=== PATIENT | male | born 1955 | race Caucasian/White ===

== ENCOUNTER 2016-05-23 06:30 | Emergency (ER) | payer BC, OTHER ==
[2016-05-23] MEDS ORDERED: Ondansetron INJ* 2 MG/ML VIAL ONE (07:12)
[2016-05-23] MEDS ORDERED: Ondansetron INJ* 2 MG/ML VIAL IV ONE ×2 (07:15→07:22)
[2016-05-23] MEDS ORDERED: Ondansetron ODT TAB* 4 MG PO ONE ×2 (07:22→09:40)
[2016-05-23] MEDS: NS 0.9% 1000 ML* 3,000 ML IV ONE ×3 (07:38→09:10)
[2016-05-23 07:56] LABS: Hematocrit 48 % (42-52); Hemoglobin 16.1 g/dl (14.0-18.0); Mean Corpuscular HGB Conc 34 g/dl (31-36); Mean Corpuscular Hemoglobin 32 pg (27-31); Mean Corpuscular Volume 94 fL (80-94); Mean Platelet Volume 8 um3 (7.4-10.4); Red Blood Count 5.09 10^6/ul (4.0-5.4); Red Cell Distribution Width 14 % (10.5-15)
[2016-05-23 08:07] LABS: Albumin 4.9 g/dL (3.2-5.2); BUN/Creatinine Ratio 22.6 (8-20); C Reactive Protein 2.41 mg/L (< 5.00); Calcium 10.3 mg/dL (8.6-10.3); EGFR African American 70.1 (>60); EGFR Non-African American 54.5 (>60); Globulin 3.3 g/dL (2-4); Potassium 4.5 mmol/L (3.5-5.0); Total Bilirubin 0.9 mg/dL (0.2-1.0); Total Protein 8.2 g/dL (6.4-8.9)
[2016-05-23 08:27] LABS: Urine Bacteria Absent (Absent); Urine Bilirubin Negative (Negative); Urine Glucose Negative (Negative); Urine Nitrite Negative (Negative)
--- NOTE | 2016-05-23 09:45 | ED ---
Ash Hunter Janilya, scribed for Rico Owens MD on 05/23/16 at 0724 . GI/ HPI - HPI Summary HPI Summary: A 61 y/o male came in to [facility] presenting w/ a gradual onset of constant nausea and vomiting starting this morning 0230. Soon after, pt started having diarrhea. He is unsure whether they are bloody particles in his diarrhea. He does state that he suspects bloody particles in his vomit. In addition, pt reports intermittent abd cramping and chills. Pt denies fever. PMHx appendectomy, kidney stones. - History of Current Complaint Chief Complaint: EDNauseaVomitDiarrh Stated Complaint: N, V & D SINCE 229 Hx Obtained From: Patient Onset/Duration: Started Hours Ago, Atraumatic, Still Present Timing: Constant Severity: Moderate Current Severity: Moderate Location of Pain: Diffuse Associated Signs and Symptoms: Positive: Nausea, Vomiting, Diarrhea, Chills, Abdominal Pain. Negative: Fever Aggravating Factor(s): Nothing Alleviating Factor(s): Nothing - Allergy/Home Medications Allergies/Adverse Reactions: Allergies Allergy/AdvReac Type Severity Reaction Status Date / Time No Known Allergies Allergy Verified 05/23/16 07:07 PMH/Surg Hx/FS Hx/Imm Hx Previously Healthy: Yes GI History: Reports: Other GI Disorders - Appendecitis History: Reports: Hx Kidney Stones - Surgical History Surgery Procedure, Year, and Place: Appendectomy Infectious Disease History: No Infectious Disease History: Denies: Traveled Outside the [place] in Last 30 Days Review of Systems Positive: Chills. Negative: Fever Positive: Abdominal Pain, Vomiting, Diarrhea, Nausea All Other Systems Reviewed And Are Negative: Yes Physical Exam Triage Information Reviewed: Yes Vital Signs On Initial Exam: Initial Vitals Temp Pulse Resp BP Pulse Ox 98.8 F 74 16 121/50 98 05/23/16 06:57 05/23/16 06:57 05/23/16 06:57 05/23/16 06:57 05/23/16 06:57 Vital Signs Reviewed: Yes Appearance: Positive: Well-Appearing, Pain Distress - Moderate. Pt is in a position on all fours. Skin: Positive: Warm, Skin Color Reflects Adequate Perfusion, Dry Head/Face: Positive: Normal Head/Face Inspection Eyes: Positive: EOMI, WALKER ENT: Positive: Normal ENT inspection Neck: Positive: Supple, Nontender Respiratory/Lung Sounds: Positive: Clear to Auscultation, Breath Sounds Present Cardiovascular: Positive: RRR Abdomen Description: Positive: Other: - Diffuse mild tenderness, worse in epigastric region.. Negative: Nontender Bowel Sounds: Positive: Present, Hypoactive Musculoskeletal: Positive: Normal, Strength/ROM Intact Neurological: Positive: Normal, Sensory/Motor Intact, Alert, Oriented to Person Place, Time Psychiatric: Positive: Affect/Mood Appropriate Diagnostics - Vital Signs Vital Signs Temp Pulse Resp BP Pulse Ox 05/23/16 06:57 98.8 F 74 16 121/50 98 - Laboratory Lab Results: Lab Results 05/23/16 05/23/16 05/23/16 Range/Units 07:41 07:41 07:41 WBC 12.0 H (3.5-10.8) 10^3/ul RBC 5.09 (4.0-5.4) 10^6/ul Hgb 16.1 (14.0-18.0) g/dl Hct 48 (42-52) % MCV 94 (80-94) fL MCH 32 H (27-31) pg MCHC 34 (31-36) g/dl RDW 14 (10.5-15) % Plt Count 196 (150-450) 10^3/ul MPV 8 (7.4-10.4) um3 Neut % (Auto) 92.4 H (38-83) % Lymph % (Auto) 2.8 L (25-47) % [place] % (Auto) 4.2 (1-9) % Eos % (Auto) 0.3 (0-6) % Baso % (Auto) 0.3 (0-2) % Absolute Neuts (auto) 11.1 H (1.5-7.7) 10^3/ul Absolute Lymphs (auto) 0.3 L (1.0-4.8) 10^3/ul Absolute Monos (auto) 0.5 (0-0.8) 10^3/ul Absolute Eos (auto) 0 (0-0.6) 10^3/ul Absolute Basos (auto) 0 (0-0.2) 10^3/ul Absolute Nucleated RBC 0 10^3/ul Nucleated RBC % 0 INR (Anticoag Therapy) 0.94 (0.89-1.11) APTT 24.3 L (26.0-36.3) seconds Sodium 138 (133-145) mmol/L Potassium 4.5 (3.5-5.0) mmol/L Chloride 103 (101-111) mmol/L Carbon Dioxide 28 (22-32) mmol/L Anion Gap 7 (2-11) mmol/L BUN 30 H (6-24) mg/dL Creatinine 1.33 H (0.67-1.17) mg/dL Est GFR ( Amer) 70.1 (>60) Est GFR (Non-Af Amer) 54.5 (>60) BUN/Creatinine Ratio 22.6 H (8-20) Glucose 154 H (70-100) mg/dL Lactic Acid (0.5-2.0) mmol/L Calcium 10.3 (8.6-10.3) mg/dL Total Bilirubin 0.90 (0.2-1.0) mg/dL AST 20 (13-39) U/L ALT 23 (7-52) U/L Alkaline Phosphatase 82 (34-104) U/L C-Reactive Protein 2.41 (< 5.00) mg/L Total Protein 8.2 (6.4-8.9) g/dL Albumin 4.9 (3.2-5.2) g/dL Globulin 3.3 (2-4) g/dL Albumin/Globulin Ratio 1.5 (1-3) Lipase 43 (11.0-82.0) U/L Urine Color Urine Appearance Urine pH (5-9) Ur Specific Marshall (1.010-1.030) Urine Protein (Negative) Urine Ketones (Negative) Urine Blood (Negative) Urine Nitrate (Negative) Urine Bilirubin (Negative) Urine Urobilinogen (Negative) Ur Leukocyte Esterase (Negative) Urine WBC (Auto) (Absent) Urine RBC (Auto) (Absent) Urine Bacteria (Absent) Urine Glucose (Negative) 05/23/16 05/23/16 Range/Units 07:41 08:04 WBC (3.5-10.8) 10^3/ul RBC (4.0-5.4) 10^6/ul Hgb (14.0-18.0) g/dl Hct (42-52) % MCV (80-94) fL MCH (27-31) pg MCHC (31-36) g/dl RDW (10.5-15) % Plt Count (150-450) 10^3/ul MPV (7.4-10.4) um3 Neut % (Auto) (38-83) % Lymph % (Auto) (25-47) % [place] % (Auto) (1-9) % Eos % (Auto) (0-6) % Baso % (Auto) (0-2) % Absolute Neuts (auto) (1.5-7.7) 10^3/ul Absolute Lymphs (auto) (1.0-4.8) 10^3/ul Absolute Monos (auto) (0-0.8) 10^3/ul Absolute Eos (auto) (0-0.6) 10^3/ul Absolute Basos (auto) (0-0.2) 10^3/ul Absolute Nucleated RBC 10^3/ul Nucleated RBC % INR (Anticoag Therapy) (0.89-1.11) APTT (26.0-36.3) seconds Sodium (133-145) mmol/L Potassium (3.5-5.0) mmol/L Chloride (101-111) mmol/L Carbon Dioxide (22-32) mmol/L Anion Gap (2-11) mmol/L BUN (6-24) mg/dL Creatinine (0.67-1.17) mg/dL Est GFR ( Amer) (>60) Est GFR (Non-Af Amer) (>60) BUN/Creatinine Ratio (8-20) Glucose (70-100) mg/dL Lactic Acid 2.6 H* (0.5-2.0) mmol/L Calcium (8.6-10.3) mg/dL Total Bilirubin (0.2-1.0) mg/dL AST (13-39) U/L ALT (7-52) U/L Alkaline Phosphatase (34-104) U/L C-Reactive Protein (< 5.00) mg/L Total Protein (6.4-8.9) g/dL Albumin (3.2-5.2) g/dL Globulin (2-4) g/dL Albumin/Globulin Ratio (1-3) Lipase (11.0-82.0) U/L Urine Color Yellow Urine Appearance Clear Urine pH 6.0 (5-9) Ur Specific Marshall 1.024 (1.010-1.030) Urine Protein Negative (Negative) Urine Ketones Negative (Negative) Urine Blood Negative (Negative) Urine Nitrate Negative (Negative) Urine Bilirubin Negative (Negative) Urine Urobilinogen Negative (Negative) Ur Leukocyte Esterase Negative (Negative) Urine WBC (Auto) Absent (Absent) Urine RBC (Auto) Absent (Absent) Urine Bacteria Absent (Absent) Urine Glucose Negative (Negative) Result Diagrams: 05/23/16 07:41 05/23/16 07:41 Lab Statement: Any lab studies that have been ordered have been reviewed, and results considered in the medical decision making process. Re-Evaluation - Re-Evaluation First Eval Re-Evaluation Time: 09:39 Change: Improved Comment: Pt feels much better. On a reexamination, pt's abdomen is non-tender w / positive bowel sounds. GIGU Course/Dx - Course Assessment/Plan: IMPROVED IN ED AFTER IVF/ZOFRAN. NO FOCAL ABD PAIN. DISCHARGE HOME STABLE. - Diagnoses Provider Diagnoses: Nausea & vomiting, Dehydration Discharge - Discharge Plan Condition: Stable Disposition: HOME Prescriptions: Ondansetron ODT TAB* [Zofran Odt TAB*] 4 mg PO Q6H PRN #10 tab.odt PRN Reason: Nausea Patient Education Materials: Acute Nausea and Vomiting (ED), Dehydration (ED) Referrals: Rico Yun MD [Primary Care Provider] - Additional Instructions: FOLLOW UP WITH YOUR DOCTOR. RETURN TO THE EMERGENCY DEPARTMENT FOR ANY WORSENING OF YOUR CONDITION OR QUESTIONS OR CONCERNS. The documentation as recorded by the Ash burrell Janilya accurately reflects the service I personally performed and the decisions made by me, Rico Owens MD.
[2016-05-23 10:23] VITALS: BP 118/73
--- NOTE | 2016-05-25 09:14 | ED ---
Progress - Progress Note Progress Note: Pt's stool cx reveals occult blood and a + lactoferrin (neg bacterial tests). His clinic report from date of visit indicates a viral gastroenteritis, sx improved w/ IVF/Zofran. Spoke w/ pt today who reports he's improving each day since d/c - nausea/vomiting resolved after receiving zofran in hospital and has not needed to take any at home. He has been rehydrating w/ pedialyte and eating bland foods such a dry bread, crackers, banana. No ab pain. BM's are still loose and he does not an active hemorrhoid - BRB on toilet paper w/ wiping only. 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 He does go on to report a grandfather w/ h/o colon ca and pt has had a colonoscopy about 5-10 yrs ago (WNL per pt). Follows closely w/ PCP and agrees to f/u in 2 weeks regarding current issues - will call today to schedule an appt. If worse, return to ED. [facility] to fax lab results to PCP as well - kristi Marcus aware. Re-Evaluation - Re-Evaluation First Eval Re-Evaluation Time: 09:39 Change: Improved Comment: Pt feels much better. On a reexamination, pt's abdomen is non-tender w / positive bowel sounds. Course/Dx - Diagnoses Provider Diagnoses: Nausea & vomiting, Dehydration
--- NOTE | 2016-05-26 10:14 | PN ---
Progress Note - Progress Note Note: Maria Elena Cameron PA-C called patient yesterday 05/25/16 who states his symptoms are improving. His stool final culture results were positive for Lactoferrin and blood. Negative for shiga, giardia/cryptosporin and c-diff. No change needed at this time. He is following- up with pcp and aware of worsening/persistent symptoms to return to ED.
== END 2016-05-23 10:16 | disposition home or self-care (01) ==
LOC: ED 06:30
DX: E86.0 Dehydration (principal); R11.2 Nausea with vomiting, unspecified; Z87.442 Personal history of urinary calculi
CPT/HCPCS: 36415; 80053; 81003; 82272; 83605; 83630; 83690; 85025; 85610; 85730; 86140; 87045; 87046; 87328; 87329; 87493; 87899; 96360; 96374; 99282; A9270-GY; J2405

== ENCOUNTER 2018-07-25 21:21 | Emergency (ER) | payer BC ==
[2018-07-25 21:32] VITALS: BP 133/72
--- NOTE | 2018-07-25 21:35 | UC ---
Complaint Male HPI - HPI Summary HPI Summary: 63 yo male presents with penile sensitivity. He tells me that as he has gotten older he is very worried that his glans penis will not be as sensitive. He is circumsized, but wishes not to be. He read online that he can buy a device that holds his foreskin over his glans penis and this will cause his glans to become more sensitive over time. He has been doing this for about a month. 1 week ago he developed redness, itching, and odor to his foreskin and glans penis. He figured this was a yeast infection and treated this with OTC clortimazole - his symptoms resolved but he continued to use the cream. He is here today concerned that the infection is still present because he is having sensitivity. Denies dysuria, recent sexual activity, or concern for STI - History of Current Complaint Chief Complaint: UCGU Stated Complaint: URINARY COMPLAINT Time Seen by Provider: 07/25/18 21:35 Hx Obtained From: Patient Onset/Duration: Gradual Onset Severity Initially: Mild Severity Currently: Mild Pain Intensity: 3 - Allergies/Home Medications Allergies/Adverse Reactions: Allergies Allergy/AdvReac Type Severity Reaction Status Date / Time No Known Allergies Allergy Verified 07/25/18 21:25 Home Medications: Home Medications NK [No Home Medications Reported] 07/25/18 [History Confirmed 07/25/18] PMH/Surg Hx/FS Hx/Imm Hx - Additional Past Medical History Additional PMH: None - Surgical History Surgical History: Yes Surgery Procedure, Year, and Place: Appendectomy; Lithotripsy - Family History Known Family History: Positive: None - Social History Lives: Alone Alcohol Use: None Substance Use Type: None Smoking Status (MU): Never Smoked Tobacco Review of Systems All Other Systems Reviewed And Are Negative: Yes Constitutional: Positive: Negative Skin: Positive: Negative Respiratory: Positive: Negative Cardiovascular: Positive: Negative Gastrointestinal: Positive: Negative Genitourinary: Positive: Other - penile sensitivity Neurovascular: Positive: Negative Neurological: Positive: Negative Psychological: Positive: Negative Physical Exam - Summary Physical Exam Summary: GENERAL: NAD. WDWN. No pain distress. SKIN: SEE NECK: Supple. Nontender. No lymphadenopathy. CHEST: No accessory muscle use. Breathing comfortably and in no distress. CV: Pulses intact. Cap refill <2seconds NEURO: Alert. PSYCH: Age appropriate behavior. Triage Information Reviewed: Yes Vital Signs: Initial Vital Signs Temp 98.3 F 07/25/18 21:25 Pulse 63 07/25/18 21:25 Resp 14 07/25/18 21:25 BP 133/72 07/25/18 21:25 Pulse Ox 100 07/25/18 21:25 Vital Signs Reviewed: Yes Male Genital Exam: Positive: Normal Genitalia. Negative: Bleeding, Epididymal Tenderness, Erythema, Inguinal Tenderness, Lesions, Scrotum Tenderness (R), Scrotum Tenderness (L), Testicular Tenderness (R), Testicular Tenderness (L), Urethral Discharge Complaint Male Course/Dx - Course Course Of Treatment: Reassured pt that his exam is normal and there is no sign of yeast or other infection. His UA is negative. I advised him to stop applying creams, lotions, and using his "manhood" foreskin device as I believe these are causing increased sensitivity to the glans penis. Pt voiced understanding and agreement - Differential Dx/Diagnosis Provider Diagnosis: Penile pain Discharge - Sign-Out/Discharge Documenting (check all that apply): Patient Departure All imaging exams completed and their final reports reviewed: No Studies - Discharge Plan Condition: Stable Disposition: HOME Referrals: Darius Denny DO [Primary Care Provider] - Additional Instructions: If you develop a fever, shortness of breath, chest pain, new or worsening symptoms - please call your PCP or go to the ED immediately. - Billing Disposition and Condition Condition: STABLE Disposition: Home
== END 2018-07-25 22:16 | disposition home or self-care (01) ==
LOC: UCEAST 21:21
DX: N48.89 Other specified disorders of penis (principal)
CPT/HCPCS: 81003; 99211; G0463